=== PATIENT | female | born 1995 | race Caucasian/White ===

== ENCOUNTER 2020-11-20 18:15 | Emergency (ER) | payer OTHER ==
[~2020-11-20 18:15] MED LIST: IMODIUM CAP 2 MG2 MG PO; PHENERGAN 25 MG25 M1 PO; PHENERGAN 25 MG25 MG PR
[2020-11-20 19:06] LABS: HEMOGLOBIN 14.9 gm/dl (12.3-15.3); RED BLOOD COUNT 5.23 M/UL (4.00-5.10); WHITE BLOOD COUNT 25.5 K/UL (4.5-11.0)
[2020-11-20 19:18] LABS: BUN/CREATININE RATIO 19 (0-10)
[2020-11-21] MEDS ORDERED: DOXYCYCLINE HY100 MG PO (00:49)
[2020-11-21] MEDS ORDERED: K-DUR TAB 20 M20 MEQ PO (00:49)
[2020-11-21] MEDS ORDERED: DECADRON6 MG PO (00:49)
[2020-11-21] MEDS ORDERED: ZOFRAN ODT 4 MG4 MG SL (00:49)
== END 2020-11-21 02:35 | disposition home or self-care (01) ==
LOC: ER1 18:15
PROVIDERS: Physician Assistant
DX: N30.90 Cystitis, unspecified without hematuria (principal); R19.7 Diarrhea, unspecified; F17.200 Nicotine dependence, unspecified, uncomplicated; Z87.19 Personal history of other diseases of the digestive system; Z87.42 Personal history of other diseases of the female genital tract; Z88.2 Allergy status to sulfonamides; Z20.822 Contact with and (suspected) exposure to COVID-19
CPT/HCPCS: 71045; 80053; 81001; 83605; 83690; 84703; 85025; 85379; 87040; 87081; 87086; 87880; 93005; 96365; 96367; 96375; 96376; 99285; J0696; J1200; J2405; J2930; J7030; Q9967; U0003

== ENCOUNTER 2021-01-22 15:14 | Observation (INO) | payer OTHER ==
[~2021-01-22] VITALS: Ht 170.2 cm; Wt 119.1 kg
[~2021-01-22 15:14] MED LIST changes: +DECADRON6 MG PO; +DOXYCYCLINE HY100 MG PO; +K-DUR TAB 20 M20 MEQ PO; +ZOFRAN ODT 4 MG4 MG SL
[2021-01-22 16:07] LABS: HEMOGLOBIN 14.2 gm/dl (12.3-15.3); RED BLOOD COUNT 5.06 M/UL (4.00-5.10); WHITE BLOOD COUNT 24.2 K/UL (4.5-11.0)
[2021-01-22 16:35] LABS: BUN/CREATININE RATIO 23 (0-10)
[2021-01-22] MEDS ORDERED: REGLAN5 MG PO (23:13)
[2021-01-22 23:45] LABS: HEMOGLOBIN 12.5 gm/dl (12.3-15.3)
[2021-01-23 11:11] LABS: HEMOGLOBIN 11.2 gm/dl (12.3-15.3)
== END 2021-01-23 18:11 | disposition home or self-care (01) ==
LOC: ER1 15:14 → CDU 21:57 → MED SURG 4 21:57
PROVIDERS: Physician Assistant; ADMIT Internal Medicine
DX: R11.2 Nausea with vomiting, unspecified (principal); K31.9 Disease of stomach and duodenum, unspecified; D72.828 Other elevated white blood cell count; E86.0 Dehydration; R80.9 Proteinuria, unspecified; R82.4 Acetonuria; R82.5 Elevated urine levels of drugs, medicaments and biological substances; E11.65 Type 2 diabetes mellitus with hyperglycemia; E11.43 Type 2 diabetes mellitus with diabetic autonomic (poly)neuropathy; K31.84 Gastroparesis; F17.290 Nicotine dependence, other tobacco product, uncomplicated; E66.01 Morbid (severe) obesity due to excess calories; Z68.41 Body mass index [BMI] 40.0-44.9, adult; Z96.82 Presence of neurostimulator; Z79.899 Other long term (current) drug therapy; Z90.721 Acquired absence of ovaries, unilateral; Z88.1 Allergy status to other antibiotic agents; Z88.2 Allergy status to sulfonamides; Z20.822 Contact with and (suspected) exposure to COVID-19
CPT/HCPCS: 36415; 80053; 80307; 81001; 82550; 82553; 83690; 83735; 84100; 84439; 84443; 84484; 84703; 85014; 85018; 85025; 86140; 87040; 96374; 96375; 96376; 99285; C9113; G0378; J2405; J2550; J2765; J7030; Q9967; U0002

== ENCOUNTER 2021-06-08 20:37 | Emergency (ER) | payer OTHER ==
[~2021-06-08 20:37] MED LIST changes: +REGLAN5 MG PO
[2021-06-08 22:05] LABS: HEMOGLOBIN 12.6 gm/dl (12.3-15.3); RED BLOOD COUNT 4.41 M/UL (4.00-5.10); WHITE BLOOD COUNT 17.4 K/UL (4.5-11.0)
[2021-06-08 22:25] LABS: BUN/CREATININE RATIO 16 (0-10)
[2021-06-09] MEDS ORDERED: PHENERGAN 25 MG25 M1 PO (07:06)
[2021-06-09] MEDS ORDERED: ZOFRAN ODT 4 MG4 MG SL (07:06)
[2021-06-09] MEDS ORDERED: CLARITIN10 MG PO (11:02)
[2021-06-09] MEDS ORDERED: FOLIC ACID 1 MG1 MG PO (11:03)
[2021-06-09] MEDS ORDERED: PROTONIX 40 MG40 M1 PO (11:03)
[2021-06-09] MEDS ORDERED: DRISDOL1250 MCG PO (11:03)
== END 2021-06-09 09:00 | disposition home or self-care (01) ==
LOC: ER1 20:37 → CDU 06-09 07:26 → ER1 06-09 07:26 → CDU 06-09 09:00
PROVIDERS: Emergency Medicine
DX: K37 Unspecified appendicitis (principal); E11.9 Type 2 diabetes mellitus without complications; Z20.822 Contact with and (suspected) exposure to COVID-19
CPT/HCPCS: 80053; 81001; 82009; 83690; 85025; 96374; 96375; 96376; 99284; G0378; J2270; J2405; J2543; J2550; J2765; Q9967; U0002

== ENCOUNTER 2021-09-10 23:44 | Emergency (ER) | payer OTHER ==
[~2021-09-10 23:44] MED LIST changes: +CLARITIN10 MG PO; +DRISDOL1250 MCG PO; +FOLIC ACID 1 MG1 MG PO; +PROTONIX 40 MG40 M1 PO
[2021-09-11 01:25] LABS: HEMOGLOBIN 12.6 gm/dl (12.3-15.3); RED BLOOD COUNT 4.27 M/UL (4.00-5.10); WHITE BLOOD COUNT 15.7 K/UL (4.5-11.0)
[2021-09-11 01:46] LABS: BUN/CREATININE RATIO 25 (0-10)
== END 2021-09-11 02:05 | disposition home or self-care (01) ==
LOC: ER1 23:44
PROVIDERS: Physician Assistant
DX: S60.211A Contusion of right wrist, initial encounter (principal); S60.212A Contusion of left wrist, initial encounter; R44.3 Hallucinations, unspecified; Z88.2 Allergy status to sulfonamides; F17.200 Nicotine dependence, unspecified, uncomplicated; Y08.89XA Assault by other specified means, initial encounter
CPT/HCPCS: 51701; 73100; 80053; 80307; 81001; 84439; 84443; 84703; 85025; 99284; G0480